=== PATIENT | male | born 1980 | race Caucasian/White ===

== ENCOUNTER 2020-08-09 12:53 | Observation (INO) | payer SELFPAY ==
[2020-08-09 13:35] LABS: HEMATOCRIT 54.4 % (42.0-52.0); MEAN CELL VOLUME 88 fl (78-100); MEAN CORPUSCULAR HEMOGLOBIN 31 pg (27-31); MEAN CORPUSCULAR HGB CONC 35 g/dL (33-37); MEAN PLATELET VOLUME 9.4 fl (7.4-10.4); PLATELET COUNT 357 K/mm3 (130-400); RED BLOOD COUNT 6.21 M/mm3 (4.20-5.60); RED CELL DISTRIBUTION WIDTH 13.6 % (11.5-14.5)
[2020-08-09 13:51] LABS: ALBUMIN 4.9 g/dL (3.5-5.0)
[2020-08-09 13:52] LABS: POTASSIUM 4.2 mmol/L (3.5-5.1); SODIUM 140 mmol/L (136-145)
[2020-08-09 13:53] LABS: CALCIUM 10.1 mg/dL (8.3-10.5)
[2020-08-09 13:54] LABS: GLUCOSE 116 mg/dL (75-110); TOTAL PROTEIN 9.3 g/dL (6.4-8.3)
[2020-08-09 13:55] LABS: CARBON DIOXIDE 21 mmol/L (22-29)
[2020-08-09 13:56] LABS: TOTAL BILIRUBIN 0.5 mg/dL (0.2-1.2)
[2020-08-09 13:59] LABS: AST-SGOT 29 U/L (5-34)
[2020-08-09 14:00] LABS: ALT/SGPT 39 U/L (0-55)
[2020-08-09 14:01] LABS: LIPASE 31 U/L (8-78)
[2020-08-09 14:17] LABS: TROPONIN-I < 0.03 ng/mL (<0.030)
[2020-08-09 14:34] LABS: BAND 8 % (0-10); LYMPHOCYTE 10 % (20-51); MONOCYTE 4 % (3-10); NEUTROPHILS 78 % (42-75)
[2020-08-09 14:35] LABS: TEAR DROP CELLS 1+
[2020-08-09 15:10] VITALS: BP 132/96
[2020-08-09] MEDS ORDERED: LEVOXYL0.15 MG PO (15:41)
[2020-08-09] MEDS ORDERED: ADDERALL XR30 MG PO (15:42)
[2020-08-09] MEDS ORDERED: EFFEXOR XR150 M1 PO (15:42)
[2020-08-09] MEDS ORDERED: XANAX 1MG1 MG PO (15:42)
[2020-08-09 16:56] LABS: URINE APPEARANCE CLEAR; URINE COLOR YELLOW; URINE GLUCOSE NEGATIVE (NEGATIVE); URINE KETONE NEGATIVE (NEGATIVE); URINE PROTEIN(semi-quant) TRACE mg/dL (NEGATIVE)
[2020-08-09 16:57] LABS: URINE BILIRUBIN 1+ (NEGATIVE); URINE BLOOD NEGATIVE (NEGATIVE); URINE LEUKOCYTE ESTERASE TRACE (NEGATIVE); URINE MUCUS PRESENT (NOT PRESENT); URINE NITRATE NEGATIVE (NEGATIVE); URINE UROBILINOGEN NORMAL (NORMAL)
[2020-08-09 18:00] VITALS: BP 143/85
[2020-08-09 21:35] VITALS: BP 141/92
[2020-08-10 02:12] VITALS: BP 132/92
[2020-08-10 05:39] LABS: HEMATOCRIT 43.8 % (42.0-52.0); HEMOGLOBIN 14.7 g/dL (13.5-18.0); MEAN PLATELET VOLUME 9.5 fl (7.4-10.4); RED BLOOD COUNT 4.84 M/mm3 (4.20-5.60); RED CELL DISTRIBUTION WIDTH 13.4 % (11.5-14.5); WHITE BLOOD COUNT 6.2 K/mm3 (4.8-10.8)
[2020-08-10 05:50] VITALS: BP 159/85
[2020-08-10 06:19] LABS: POTASSIUM 3.8 mmol/L (3.5-5.1)
[2020-08-10 06:20] LABS: CALCIUM 8.1 mg/dL (8.3-10.5)
[2020-08-10] MEDS ORDERED: LEVOXYL0.15 MG PO (09:01)
[2020-08-10] MEDS ORDERED: ZOFRAN ODT4 MG PO (09:01)
[2020-08-10] MEDS ORDERED: TOPCARE OMEPRAZ20 MG PO (09:03)
== END 2020-08-10 10:07 | disposition home or self-care (01) ==
LOC: ED 12:53 → MED/SURG 17:29
PROVIDERS: ADMIT Nurse Practitioner Family
DX: R10.84 Generalized abdominal pain (principal); R11.2 Nausea with vomiting, unspecified; R19.7 Diarrhea, unspecified; E86.0 Dehydration; E03.9 Hypothyroidism, unspecified; K21.9 Gastro-esophageal reflux disease without esophagitis; E05.00 Thyrotoxicosis with diffuse goiter without thyrotoxic crisis or storm; F32.9 Major depressive disorder, single episode, unspecified; F90.9 Attention-deficit hyperactivity disorder, unspecified type; F41.9 Anxiety disorder, unspecified; Z91.14 Patient's other noncompliance with medication regimen; Z79.890 Hormone replacement therapy; Z79.899 Other long term (current) drug therapy; Z63.79 Other stressful life events affecting family and household
CPT/HCPCS: G0378; J1885; J2060; J2270; J2405; J2550; J7030; J7120; Q9967